=== PATIENT | female | born 2000 | race Caucasian/White ===

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

== ENCOUNTER 2018-01-21 10:34 | Emergency (ER) | payer BC ==
[2018-01-21] MEDS ORDERED: 0.9 % SODIUM CHLORIDE 1,000 ML BAG IV ONE (11:05)
[2018-01-21] MEDS ORDERED: KETOROLAC 30 MG/ML VIAL IVP ONE (11:06)
--- NOTE | 2018-01-21 11:13 | Emergency Department Record ---
History of Present Illness - General Chief Complaint: Headache Migraine Stated Complaint: HEADACHE,VISION LOSS Time Seen by Provider: 01/21/18 10:53 Source: Patient Mode of Arrival: Ambulatory Limitations: No limitations - History of Present Illness Initial Comments: pt has had a lin this am which has gotten gradually worse. it is global. she has not had a headache like this before. she had a brief moment of nearly blacking out when she stood up quickly. there is a family hx of migraines MD Complaint: Headache Onset/Timin -: Hour(s) Onset Description: Sudden Location: Diffuse Severity scale (1-10): 7 Quality: Aching Consistency: Constant Improves With: Nothing Worsens With: None Context: Tick bite Associated Symptoms: Nausea, Sensitivity to sound Treatments Prior to Arrival: None - Related Data Home Medications Medication Instructions Recorded Confirmed Last Taken Methylphenidate HCl [Concerta] 36 mg PO DAILY 01/21/18 01/21/18 Unknown Allergies Allergy/AdvReac Type Severity Reaction Status Date / Time No Known Drug Allergies Allergy Verified 01/21/18 10:46 Travel Screening - Travel/Exposure Within Last 30 Days Have you traveled within the last 30 days?: No Review of Systems Reviewed: No additional complaints except as noted below Constitutional: Reports: As per HPI. Denies: Chills, Fever, Malaise, Night sweats, Weakness, Weight change Eyes: Reports: As per HPI. Denies: Eye discharge, Eye pain, Photophobia, Vision change ENT: Reports: As per HPI. Denies: Congestion, Dental pain, Ear pain, Epistaxis , Hearing loss, Throat pain Respiratory: Reports: As per HPI. Denies: Cough, Dyspnea, Hemoptysis, Stridor, Wheezes Cardiovascular: Reports: As per HPI. Denies: Arrhythmia, Chest pain, Dyspnea on exertion, Edema, Murmurs, Orthopnea, Palpitations, Paroxysmal nocturnal dyspnea, Rheumatic Fever, Syncope Endocrine: Reports: As per HPI. Denies: Fatigue, Heat or cold intolerance, Polydipsia, Polyuria Gastrointestinal: Reports: As per HPI. Denies: Abdominal pain, Constipation, Diarrhea, Hematemesis, Hematochezia, Melena, Nausea, Vomiting Genitourinary: Reports: As per HPI. Denies: Abnormal menses, Discharge, Dyspareunia, Dysuria, Frequency, Hematuria, Incontinence, Retention, Urgency Musculoskeletal: Reports: As per HPI. Denies: Arthralgia, Back pain, Gout, Joint swelling, Myalgia, Neck pain Skin: Reports: As per HPI. Denies: Bruising, Change in color, Change in hair/ nails, Lesions, Pruritus, Rash Neurological: Reports: As per HPI, Headache. Denies: Abnormal gait, Confusion, Numbness, Paresthesias, Seizure, Tingling, Tremors, Vertigo, Weakness Psychiatric: Reports: As per HPI. Denies: Anxiety, Auditory hallucinations, Depression, Homicidal thoughts, Suicidal thoughts, Visual hallucinations Hematological/Lymphatic: Reports: As per HPI. Denies: Anemia, Blood Clots, Easy bleeding, Easy bruising, Swollen glands Past Medical History - SOCIAL HISTORY Smoking Status: Never smoker Alcohol Use: None Drug Use: None - RESPIRATORY Hx Respiratory Disorders: No - CARDIOVASCULAR Hx Cardio Disorders: No - NEURO Hx Neuro Disorders: No - GI Hx GI Disorders: No - Hx Genitourinary Disorders: Yes Hx UTI: Yes - ENDOCRINE Hx Endocrine Disorders: No - MUSCULOSKELETAL Hx Musculoskeletal Disorders: No - PSYCH Hx Psych Problems: No - HEMATOLOGY/ONCOLOGY Hx Hematology/Oncology Disorders: No Family Medical History Any Significant Family History?: Yes Hx HTN: Grandparents Physical Exam - General General Appearance: Alert, Oriented x3, Cooperative, Mild distress - Head Head exam: Normal inspection - Eye Eye exam: Normal appearance, PERRL, EOMI Pupils: Normal accommodation - ENT ENT exam: Normal exam, Mucous membranes moist, Normal external ear exam, Normal orophraynx Ear exam: Normal external inspection. negative: External canal tenderness Nasal Exam: Normal inspection. negative: Discharge, Sinus tenderness Mouth exam: Normal external inspection, Tongue normal Teeth exam: Normal inspection. negative: Dental caries Throat exam: Normal inspection. negative: Tonsillar erythema, Tonsillar exudate - Neck Neck exam: Normal inspection, Full ROM. negative: Tenderness - Respiratory Respiratory exam: Normal lung sounds bilaterally. negative: Respiratory distress - Cardiovascular Cardiovascular Exam: Regular rate, Normal rhythm, Normal heart sounds - GI/Abdominal GI/Abdominal exam: Soft, Normal bowel sounds. negative: Tenderness - Rectal Rectal exam: Deferred - exam: Deferred - Extremities Extremities exam: Normal inspection, Full ROM, Normal capillary refill. negative: Tenderness - Back Back exam: Reports: Normal inspection, Full ROM. Denies: Muscle spasm, Rash noted, Tenderness - Neurological Neurological exam: Alert, CN II-XII intact, Normal gait, Oriented X3 - Psychiatric Psychiatric exam: Normal affect, Normal mood - Skin Skin exam: Dry, Intact, Normal color, Warm Course Vital Signs 01/21/18 10:42 Temperature 98.2 F Pulse Rate 76 Respiratory 18 Rate Blood Pressure 131/73 Pulse Ox 96 - Reevaluation(s) Reevaluation #1: 01/21/18 12:24 pt feels better Reevaluation #2: 01/21/18 12:28 ct neg except r sphenoid sinusitis Medical Decision Making - Lab Data Result diagrams: 01/21/18 11:20 01/21/18 11:20 Disposition Disposition: Discharge Clinical Impression: Headache Qualifiers: Headache type: unspecified Headache chronicity pattern: acute headache Intractability: not intractable Qualified Code(s): R51 - Headache Disposition: Home, Self-Care Condition: (1) Good Instructions: Acute Headache (ED) Additional Instructions: follow up with family doctor. return sooner if worse. rest. Forms: Patient Portal Access, Return to Work/School Quality - Quality Measures Quality Measures: N/A - Blood Pressure Screening Does Patient Have Any of the Following: No Blood Pressure Classification: Pre-Hypertensive BP Reading Systolic Measurement: 131 Diastolic Measurement: 73 Screening for High Blood Pressure: < Pre-Hypertensive BP, F/U Documented > [ G8950] Pre-Hypertensive Follow-up Interventions: Follow-up with rescreen every year.
[2018-01-21 11:28] LABS: URINE APPEARANCE CLEAR; URINE BILIRUBIN NEGATIVE (NEGATIVE); URINE BLOOD NEGATIVE (NEGATIVE); URINE COLOR YELLOW; URINE GLUCOSE (UA) NEGATIVE (NEGATIVE); URINE KETONE NEGATIVE (NEGATIVE); URINE LEUKOCYTE ESTERASE TRACE (NEGATIVE); URINE NITRITE NEGATIVE (NEGATIVE); URINE PROTEIN NEGATIVE (NEGATIVE); URINE UROBILINOGEN 0.2 E.U./dL (0.20 - 1.00)
[2018-01-21 11:30] LABS: BASO % 0.2 % (0-6); EOS % 1.3 % (0-6); GRAN % 66.3 % (47-80); HEMATOCRIT 43.6 % (35.0-47.0); HEMOGLOBIN 14.2 gm/dl (11.6-16.0); LYMPH % 24.4 % (16-45); MEAN CELL VOLUME 90.1 fl (81-97); MEAN CORPUSCULAR HEMOGLOBIN 29.3 pg (27-33); MEAN CORPUSCULAR HGB CONC 32.6 g/dl (32-36); MEAN PLATELET VOLUME 10.2 fl (7.4-10.4); MONO % 7.8 % (0-9); PLATELET COUNT 232 K/uL (130-400); RED BLOOD COUNT 4.84 M/uL (3.80-5.40); RED CELL DISTRIBUTION WIDTH 13.6 % (11.5-14.5); WHITE BLOOD COUNT W/O DIFF 8.3 K/uL (4.2-12.2)
[2018-01-21 11:35] LABS: URINE RBC NONE SEEN (NONE SEEN); URINE WBC 0 - 2 (0-2/hpf)
[2018-01-21 11:38] LABS: BLOOD UREA NITROGEN 11 mg/dL (6-20); CREATININE 0.8 mg/dL (0.5-0.9)
[2018-01-21 11:40] LABS: GLUCOSE,RANDOM 91 mg/dL (74-109)
--- NOTE | 2018-01-22 05:45 | CT SCAN REPORT ---
EXAM: CT OF THE BRAIN WITHOUT CONTRAST HISTORY: HEADACHE. TECHNIQUE: Sequential axial images were obtained from the foramen magnum to the vertex without contrast administration. FINDINGS: The brain volume is normal. There is right sphenoid sinus disease. No large territorial infarct, hemorrhage, mass effect, or midline shift. No extraaxial fluid collection. The mastoid air cells appear normal. No depressed skull fracture. IMPRESSION: RIGHT SPHENOID SINUS DISEASE. JOB NUMBER: [id number] MTDD
== END 2018-01-21 12:45 | disposition home or self-care (01) ==
LOC: ER 10:34
DX: R51 Headache (principal); J01.30 Acute sphenoidal sinusitis, unspecified; R11.0 Nausea
CPT/HCPCS: 99284 ×2; 96374; 85025; 80048; 81001; 84703; 70450; J1885; J7030

== ENCOUNTER 2018-04-13 13:50 | Emergency (ER) | payer BC ==
[2018-04-13] MEDS ORDERED: 0.9 % SODIUM CHLORIDE 1,000 ML BAG IV ONE ×2 (14:11→15:25)
[2018-04-13 14:35] LABS: HEMATOCRIT 41.3 % (35.0-47.0); HEMOGLOBIN 13.8 gm/dl (11.6-16.0); MEAN CELL VOLUME 89.8 fl (81-97); MEAN CORPUSCULAR HGB CONC 33.4 g/dl (32-36); MEAN PLATELET VOLUME 10.1 fl (7.4-10.4); PLATELET COUNT 162 K/uL (130-400); RED CELL DISTRIBUTION WIDTH 13.9 % (11.5-14.5); WHITE BLOOD COUNT W/O DIFF 8.9 K/uL (4.2-12.2)
[2018-04-13 14:45] LABS: INFLUENZA A NEGATIVE (NEGATIVE); INFLUENZA B NEGATIVE (NEGATIVE)
[2018-04-13 14:46] LABS: BLOOD UREA NITROGEN 7 mg/dL (6-20); CREATININE 0.9 mg/dL (0.5-0.9)
[2018-04-13 14:49] LABS: GLUCOSE,RANDOM 129 mg/dL (74-109)
[2018-04-13 15:07] LABS: URINE APPEARANCE CLEAR; URINE BILIRUBIN SMALL (NEGATIVE); URINE BLOOD SMALL (NEGATIVE); URINE COLOR YELLOW; URINE GLUCOSE (UA) NEGATIVE (NEGATIVE); URINE KETONE NEGATIVE (NEGATIVE); URINE LEUKOCYTE ESTERASE TRACE (NEGATIVE); URINE NITRITE NEGATIVE (NEGATIVE); URINE PROTEIN TRACE (NEGATIVE); URINE UROBILINOGEN 0.2 E.U./dL (0.20 - 1.00)
[2018-04-13 15:20] LABS: HCG,QUALITATIVE URINE NEGATIVE (NEGATIVE); URINE RBC 0 - 2 (NONE SEEN); URINE WBC 0 - 2 (0-2/hpf)
[2018-04-13] MEDS ORDERED: ONDANSETRON HCL IV 4 MG/2 ML VIAL IVP ONE (15:25)
[2018-04-13] MEDS ORDERED: POTASSIUM CHLORIDE 10 MEQ TAB PO ONE (15:46)
[2018-04-13] MEDS ORDERED: PROMETHAZINE W/CODEINE 10ML UD PO ONE (15:50)
[2018-04-13] MEDS ORDERED: ALBUTEROL SULFATE (0.083%) 2.5 MG/3 ML NEB INH ONE (15:50)
--- NOTE | 2018-04-13 15:52 | Emergency Department Record ---
History of Present Illness - General Chief complaint: ENT Stated complaint: SORE THROAT,WAGONER Time Seen by Provider: 04/13/18 14:07 Source: Patient Mode of Arrival: Ambulatory Limitations: No limitations - History of Present Illness Initial comments: pt has had fever, congestion, cough, lightheadedness, sore throat. pt feels very light headed when she stands up complaint: Sore throat Onset/Timin -: Days(s) Severity: Mild Consistency: Constant Worsens with: Swallowing Associated Symptoms: Cough, Fever, Pain with swallowing, Rhinorrhea, Sore throat - Related Data Allergies Allergy/AdvReac Type Severity Reaction Status Date / Time No Known Drug Allergies Allergy Verified 04/13/18 14:08 Travel Screening - Travel/Exposure Within Last 30 Days Have you traveled within the last 30 days?: No - Travel/Exposure Within Last Year Have you traveled outside the [place] in the last year?: No - Additonal Travel Details Have you been exposed to anyone with a communicable illness?: No - Travel Symptoms Symptom Screening: None Review of Systems Reviewed: No additional complaints except as noted below Constitutional: Reports: As per HPI, Fever. Denies: Chills, Malaise, Night sweats, Weakness, Weight change Eyes: Reports: As per HPI. Denies: Eye discharge, Eye pain, Photophobia, Vision change ENT: Reports: As per HPI, Congestion, Throat pain. Denies: Dental pain, Ear pain, Epistaxis, Hearing loss Respiratory: Reports: As per HPI, Cough. Denies: Dyspnea, Hemoptysis, Stridor, Wheezes Cardiovascular: Reports: As per HPI. Denies: Arrhythmia, Chest pain, Dyspnea on exertion, Edema, Murmurs, Orthopnea, Palpitations, Paroxysmal nocturnal dyspnea, Rheumatic Fever, Syncope Endocrine: Reports: As per HPI. Denies: Fatigue, Heat or cold intolerance, Polydipsia, Polyuria Gastrointestinal: Reports: As per HPI. Denies: Abdominal pain, Constipation, Diarrhea, Hematemesis, Hematochezia, Melena, Nausea, Vomiting Genitourinary: Reports: As per HPI. Denies: Abnormal menses, Discharge, Dyspareunia, Dysuria, Frequency, Hematuria, Incontinence, Retention, Urgency Musculoskeletal: Reports: As per HPI. Denies: Arthralgia, Back pain, Gout, Joint swelling, Myalgia, Neck pain Skin: Reports: As per HPI. Denies: Bruising, Change in color, Change in hair/ nails, Lesions, Pruritus, Rash Neurological: Reports: As per HPI. Denies: Abnormal gait, Confusion, Headache, Numbness, Paresthesias, Seizure, Tingling, Tremors, Vertigo, Weakness Psychiatric: Reports: As per HPI. Denies: Anxiety, Auditory hallucinations, Depression, Homicidal thoughts, Suicidal thoughts, Visual hallucinations Hematological/Lymphatic: Reports: As per HPI. Denies: Anemia, Blood Clots, Easy bleeding, Easy bruising, Swollen glands Past Medical History - SOCIAL HISTORY Smoking Status: Never smoker Alcohol Use: Rare Drug Use: Rare Drug Use Detail:: Marijuana - RESPIRATORY Hx Respiratory Disorders: No - CARDIOVASCULAR Hx Cardio Disorders: No - NEURO Hx Neuro Disorders: No - GI Hx GI Disorders: No - Hx Genitourinary Disorders: Yes Hx UTI: Yes - ENDOCRINE Hx Endocrine Disorders: No - MUSCULOSKELETAL Hx Musculoskeletal Disorders: No - PSYCH Hx Psych Problems: No - HEMATOLOGY/ONCOLOGY Hx Hematology/Oncology Disorders: No Family Medical History Any Significant Family History?: No Hx HTN: Grandparents Physical Exam - General General Appearance: Alert, Oriented x3, Cooperative, No acute distress - Head Head exam: Normal inspection - Eye Eye exam: Normal appearance, PERRL, EOMI Pupils: Normal accommodation - ENT ENT exam: Normal exam, Mucous membranes moist, Normal external ear exam, Normal orophraynx Ear exam: Normal external inspection. negative: External canal tenderness Nasal Exam: Normal inspection. negative: Discharge, Sinus tenderness Mouth exam: Normal external inspection, Tongue normal Teeth exam: Normal inspection. negative: Dental caries Throat exam: Tonsillar erythema. negative: Tonsillar exudate - Neck Neck exam: Normal inspection, Full ROM. negative: Tenderness - Respiratory Respiratory exam: Normal lung sounds bilaterally. negative: Respiratory distress - Cardiovascular Cardiovascular Exam: Normal rhythm, Normal heart sounds, Tachycardia - GI/Abdominal GI/Abdominal exam: Soft, Normal bowel sounds. negative: Tenderness - Rectal Rectal exam: Deferred - exam: Deferred - Extremities Extremities exam: Normal inspection, Full ROM, Normal capillary refill. negative: Tenderness - Back Back exam: Reports: Normal inspection, Full ROM. Denies: Muscle spasm, Rash noted, Tenderness - Neurological Neurological exam: Alert, CN II-XII intact, Normal gait, Oriented X3 - Psychiatric Psychiatric exam: Normal affect, Normal mood - Skin Skin exam: Dry, Intact, Normal color, Warm Course Vital Signs 04/13/18 13:52 Temperature 97.9 F Pulse Rate 103 H Respiratory 20 Rate Blood Pressure 111/52 Pulse Ox 95 Medical Decision Making - Lab Data Result diagrams: 04/13/18 14:27 04/13/18 14:27 Lab Results 04/13/18 04/13/18 04/13/18 Range/Units 14:27 14:27 14:27 WBC 8.9 (4.2-12.2) K/uL RBC 4.60 (3.80-5.40) M/uL Hgb 13.8 (11.6-16.0) gm/dl Hct 41.3 (35.0-47.0) % MCV 89.8 (81-97) fl MCH 30.0 (27-33) pg MCHC 33.4 (32-36) g/dl RDW 13.9 (11.5-14.5) % Plt Count 162 (130-400) K/uL MPV 10.1 (7.4-10.4) fl Neutrophils % 76.0 (47-80) % Band Neutrophils % 5.0 (0-5) % Eosinophils % Not Reportable Basophils % Not Reportable Lymphocytes 11.0 L (16-45) % Monocytes 7.0 (0-9) % Basophils 0.0 (0-6) % Eosinophil Count 1.0 (0-6) % Sodium 137 (136-145) mmol/L Potassium 3.3 L (3.4-4.5) mmol/L Chloride 99 (98-107) mmol/L Carbon Dioxide 23.0 (22-29) mmol/L Anion Gap 15.0 (7-16) BUN 7 (6-20) mg/dL Creatinine 0.9 (0.5-0.9) mg/dL Estimated GFR TNP Random Glucose 129 H (74-109) mg/dL Calcium 8.8 (8.6-10.0) mg/dL Urine Color Urine Appearance Urine pH (5.0-8.0) Ur Specific [place] (1.002-1.030) Urine Protein (NEGATIVE) Urine Glucose (UA) (NEGATIVE) Urine Ketones (NEGATIVE) Urine Blood (NEGATIVE) Urine Nitrite (NEGATIVE) Urine Bilirubin (NEGATIVE) Urine Urobilinogen (0.20 - 1.00) E.U./dL Ur Leukocyte Esterase (NEGATIVE) Urine RBC (NONE SEEN) Urine WBC (0-2/hpf) Ur Epithelial Cells (FEW) Urine HCG, Qual (NEGATIVE) Monoscreen Negative (NEGATIVE) Influenza Type A Ag (NEGATIVE) Influenza Type B Ag (NEGATIVE) Group A Strep Screen (NEGATIVE) 04/13/18 04/13/18 04/13/18 Range/Units 14:27 14:27 15:10 WBC (4.2-12.2) K/uL RBC (3.80-5.40) M/uL Hgb (11.6-16.0) gm/dl Hct (35.0-47.0) % MCV (81-97) fl MCH (27-33) pg MCHC (32-36) g/dl RDW (11.5-14.5) % Plt Count (130-400) K/uL MPV (7.4-10.4) fl Neutrophils % (47-80) % Band Neutrophils % (0-5) % Eosinophils % Basophils % Lymphocytes (16-45) % Monocytes (0-9) % Basophils (0-6) % Eosinophil Count (0-6) % Sodium (136-145) mmol/L Potassium (3.4-4.5) mmol/L Chloride (98-107) mmol/L Carbon Dioxide (22-29) mmol/L Anion Gap (7-16) BUN (6-20) mg/dL Creatinine (0.5-0.9) mg/dL Estimated GFR Random Glucose (74-109) mg/dL Calcium (8.6-10.0) mg/dL Urine Color Yellow Urine Appearance Clear Urine pH 6.0 (5.0-8.0) Ur Specific [place] 1.020 (1.002-1.030) Urine Protein Trace H (NEGATIVE) Urine Glucose (UA) Negative (NEGATIVE) Urine Ketones Negative (NEGATIVE) Urine Blood Small H (NEGATIVE) Urine Nitrite Negative (NEGATIVE) Urine Bilirubin Small H (NEGATIVE) Urine Urobilinogen 0.2 (0.20 - 1.00) E.U./dL Ur Leukocyte Esterase Trace H (NEGATIVE) Urine RBC 0 - 2 (NONE SEEN) Urine WBC 0 - 2 (0-2/hpf) Ur Epithelial Cells 10 - 15 (FEW) Urine HCG, Qual Negative (NEGATIVE) Monoscreen (NEGATIVE) Influenza Type A Ag Negative (NEGATIVE) Influenza Type B Ag Negative (NEGATIVE) Group A Strep Screen Negative (NEGATIVE) Disposition Disposition: Discharge Clinical Impression: Acute viral syndrome, Dehydration, Orthostatic hypotension, Hypokalemia Disposition: Home, Self-Care Condition: (1) Good Instructions: Viral Syndrome (ED) Additional Instructions: follow up with family doctor. rest. push fluids.continue dayquil and nyquil Quality - Quality Measures Quality Measures: N/A - Blood Pressure Screening Does Patient Have Any of the Following: No Blood Pressure Classification: Normal BP Reading Systolic Measurement: 111 Diastolic Measurement: 52 Screening for High Blood Pressure: < Normal BP, F/U Not Required > [G8783]
--- NOTE | 2018-04-16 10:00 | RADIOLOGY REPORT ---
EXAM: CHEST, TWO VIEWS HISTORY: PATIENT HAS A COUGH. TECHNIQUE: Two views of the chest are provided along with the comparison study dated 08/22/13. FINDINGS: The cardiomediastinal silhouette is within normal limits for size and contour. The celestina appear unremarkable. There is a questionable nodular density measuring 1.4 cm within the right lateral lower lobe. This finding may represent overlying nipple shadow, otherwise there is no radiographic evidence of a focal consolidation, pleural effusion, or pneumothorax. IMPRESSION: 1. NONSPECIFIC NODULAR DENSITY IS NOTED WITHIN THE REGION OF THE RIGHT LOWER LOBE. THIS FINDING MAY REPRESENT OVERLYING NIPPLE SHADOW. IF THERE IS FURTHER CLINICAL CONCERN THEN A CT SCAN OF THE CHEST CAN BE OBTAINED FOR FURTHER EVALUATION. 2. OTHERWISE, NO RADIOGRAPHIC EVIDENCE OF A FOCAL CONSOLIDATION, PLEURAL EFFUSION, OR PNEUMOTHORAX. JOB NUMBER: [id number] [facility]
== END 2018-04-13 17:09 | disposition home or self-care (01) ==
LOC: ER 13:50
DX: I95.1 Orthostatic hypotension (principal); E87.6 Hypokalemia; E86.0 Dehydration; B34.9 Viral infection, unspecified; R42 Dizziness and giddiness; R51 Headache; R05 Cough; R11.0 Nausea
CPT/HCPCS: 99284 ×2; 96374; 96361; 80048; 81001; 87880; 81025; 86308; 87400; 85027; 71046; 94640; J2405; J7030; J7613

== ENCOUNTER 2019-04-10 14:55 | Emergency (ER) | payer BC ==
[2019-04-10] MEDS ORDERED: 0.9 % SODIUM CHLORIDE 1,000 ML BAG IV ONE (15:32)
[2019-04-10] MEDS ORDERED: ONDANSETRON HCL IV 4 MG/2 ML VIAL IV ONE (15:32)
--- NOTE | 2019-04-10 15:40 | Emergency Department Record ---
History of Present Illness - General Chief complaint: Vomiting Stated complaint: VOMITING WAGONER Time Seen by Provider: 04/10/19 15:07 Source: Patient Mode of Arrival: Ambulatory Limitations: No limitations - History of Present Illness Initial comments: The patient is here due to intermittent WAGONER's and vomiting since falling and hitting her head 5 days ago. She states she slipped on ice and hit the back of her head on the back of her car. Since the vomiting has been off and on with a global WAGONER. There has been no neck pain, AP, back pain, or fevers. The patient does have a hx of a chronic cough but that is unchanged. MD complaint: Nausea Onset/Timin -: Days(s) Severity: Moderate Severity scale (1-10): 7 Quality: Aching Consistency: Constant Improves with: None Worsens with: None Context: Other Associated Symptoms: Denies other symptoms - Related Data Previous Rx's Medication Instructions Recorded Doxycycline Monohydrate [Mondoxyne 100 mg PO BID 7 Days #28 capsule 04/10/19 Nl] Ondansetron [Zofran Odt] 4 mg SL .Q4-6H PRN #12 tab.rapdis 04/10/19 Allergies Allergy/AdvReac Type Severity Reaction Status Date / Time oseltamivir [From Tamiflu] AdvReac VOMITING Verified 04/10/19 15:14 Travel Screening - Travel/Exposure Within Last 30 Days Have you traveled within the last 30 days?: No - Travel/Exposure Within Last Year Have you traveled outside the [place] in the last year?: No - Additonal Travel Details Have you been exposed to anyone with a communicable illness?: No - Travel Symptoms Symptom Screening: None Review of Systems Constitutional: Denies: Chills, Fever Eyes: Denies: Eye discharge ENT: Denies: Congestion Respiratory: Reports: Cough. Denies: Dyspnea Past Medical History - SOCIAL HISTORY Smoking Status: Never smoker Alcohol Use: Occasional Drug Use: Occasional Drug Use Detail:: Marijuana - RESPIRATORY Hx Respiratory Disorders: Yes Hx Asthma: Yes Comment:: Vaping induced - CARDIOVASCULAR Hx Cardio Disorders: No - NEURO Hx Neuro Disorders: No - GI Hx GI Disorders: No - Hx Genitourinary Disorders: Yes Hx UTI: Yes - ENDOCRINE Hx Endocrine Disorders: No - MUSCULOSKELETAL Hx Musculoskeletal Disorders: No - PSYCH Hx Psych Problems: No - HEMATOLOGY/ONCOLOGY Hx Hematology/Oncology Disorders: No Family Medical History Any Significant Family History?: Yes Hx HTN: Grandparents Physical Exam - General General Appearance: Alert, Oriented x3, Cooperative, No acute distress - Head Head exam: Atraumatic, Normocephalic, Normal inspection - Eye Eye exam: Normal appearance, PERRL, EOMI - ENT Throat exam: Normal inspection. negative: Tonsillar erythema, Tonsillar exudate - Neck Neck exam: Normal inspection, Full ROM. negative: Lymphadenopathy, Meningismus, Tenderness (There is no Cspine tenderness.) - Respiratory Respiratory exam: Normal lung sounds bilaterally. negative: Respiratory distress - Cardiovascular Cardiovascular Exam: Regular rate, Normal rhythm, Normal heart sounds - GI/Abdominal GI/Abdominal exam: Soft, Normal bowel sounds. negative: Tenderness - Extremities Extremities exam: Normal inspection, Full ROM, Normal capillary refill. negative: Tenderness - Back Back exam: Denies: Vertebral tenderness - Neurological Neurological exam: Alert, Normal gait, Oriented X3. negative: Abnormal gait, Altered, Motor sensory deficit Course Vital Signs 04/10/19 15:16 Temperature 98 F Pulse Rate 96 H Respiratory 18 Rate Blood Pressure 122/69 Pulse Ox 97 - Reevaluation(s) Reevaluation #1: The patient is doing a lot better at this time. She denies any WAGONER, nausea, AP, or any more coughing. I did discuss the lab and xray results with the patient and do believe she has 2 different things going on. I do believe the WAGONER and nausea are most likely related to a mild concussion from the fall last weekend. I also believe the sinus infection and probably a lung infection is causing the coughing. We will discharge the patient with Doxycycline and Zofran and she is to see her PCP next week for recheck. 04/10/19 17:28 Medical Decision Making - Data Complexity MDM Data: Labs Ordered and/or Reviewed, X-Ray Ordered and/or Reviewed - Lab Data Result diagrams: 04/10/19 15:10 04/10/19 15:10 - Radiology Data Radiology results: Report reviewed (CXR: Neg Head CT: Neg for acute intracranial abnormality. Positive spenoid and L maxillary sinusitis.) Disposition Disposition: Discharge Clinical Impression: Bronchitis, Post-concussion syndrome Disposition: Home, Self-Care Condition: (2) Stable Instructions: Acute Nausea and Vomiting (ED), Post Concussion Syndrome (ED) Additional Instructions: Please take the Doxycycline as directed and also use Zofran for nausea. Please see your family doctor next week if not better and return to the ER for any worsening issues. Prescriptions: Doxycycline Monohydrate [Mondoxyne Nl] 100 mg PO BID 7 Days #28 capsule Ondansetron [Zofran Odt] 4 mg SL .Q4-6H PRN #12 tab.rapdis PRN Reason: Nausea Forms: Patient Portal Access Time of Disposition: 17:33 Quality - Quality Measures Quality Measures: N/A - Blood Pressure Screening View Details: Yes Does Patient Have Any of the Following: No Blood Pressure Classification: Pre-Hypertensive BP Reading Systolic Measurement: 122 Diastolic Measurement: 69 Screening for High Blood Pressure: < Pre-Hypertensive BP, F/U Documented > [G8950] Pre-Hypertensive Follow-up Interventions: Referral to alternative/primary care kam montalvo.
[2019-04-10 15:47] LABS: ABSOLUTE NEUTROPHIL COUNT 2.39; BASO % 0.5 % (0-6); EOS % 0.7 % (0-6); GRAN % 59.3 % (47-80); HEMATOCRIT 43.2 % (35.0-47.0); LYMPH % 24.6 % (16-45); MEAN CELL VOLUME 88.5 fl (81-97); MEAN CORPUSCULAR HEMOGLOBIN 28.7 pg (27-33); MEAN CORPUSCULAR HGB CONC 32.4 g/dl (32-36); MONO % 14.9 % (0-9); PLATELET COUNT 217 K/uL (130-400); RED BLOOD COUNT 4.88 M/uL (3.80-5.40); RED CELL DISTRIBUTION WIDTH 14.5 % (11.5-14.5)
[2019-04-10 16:01] LABS: BLOOD UREA NITROGEN 7 mg/dL (6-20); CREATININE 0.9 mg/dL (0.5-0.9); EST GLOMERULAR FILTRATION RATE > 60 mL/min
[2019-04-10 16:02] LABS: TOTAL PROTEIN 7.5 g/dL (6.6-8.7)
[2019-04-10 16:04] LABS: GLUCOSE,RANDOM 93 mg/dL (74-109)
[2019-04-10 16:06] LABS: ALT/SGPT 11 U/L (<33)
[2019-04-10] MEDS ORDERED: ACETAMINOPHEN 1,000 MG/100 ML BTL IVPB ONE (16:06)
[2019-04-10 16:07] LABS: ALB/GLOB RATIO 1.3 (1.1-1.8); ALBUMIN 4.2 g/dL (4.0-5.0); ALKALINE PHOSPHATASE 111 U/L (35-104); AST/SGOT 16 U/L (10.0-35.0)
--- NOTE | 2019-04-10 16:49 | CT SCAN REPORT ---
EXAMINATION: HEAD WO CONTRAST EXAM DATE: 04/10/2019 4:31 PM TECHNIQUE: Noncontrast axial images were obtained to the brain. INDICATION: Head injury COMPARISON: 01/20/2018 ENCOUNTER: Not applicable HAND DOMINANCE: Unknown FINDINGS: The brain parenchyma is unremarkable for age. No loss of jaramillo-white matter differentiation or sulcal effacement to indicate acute infarction. No evidence of intracranial mass. The ventricles, sulci, and subarachnoid spaces are unremarkable for age. The basal cisterns are paten t and there is no midline shift or herniation. No intra-axial or extra-axial fluid collection. No evidence of intracranial hemorrhage. Opacification of the right sphenoid sinus is again demonstrated. Mild maxillary sinus mucosal thicken ing. Small air-fluid level in the left sphenoid sinus and left frontal sinus. The paranasal sinuses, mastoid air cells, and orbits are otherwise unremarkable. The calvarium is intact. IMPRESSION: 1. No CT evidence of intracranial hemorrhage or acute intracranial abnormality. 2. Air-fluid levels in the left sphenoid sinus and left maxillary sinus are inflammatory or traumati c, favoring inflammatory etiology Dictated by: ANA LUISA MUNIZ MD on 04/10/2019 4:46 PM. .
--- NOTE | 2019-04-10 17:02 | RADIOLOGY REPORT ---
EXAMINATION: Two View Chest Radiographs EXAM DATE: 04/10/2019 4:37 PM TECHNIQUE: Frontal and lateral views INDICATION: cough COMPARISON: 03/06/2019 ENCOUNTER: Not applicable FINDINGS: No pulmonary infiltrate, pneumothorax, or pleural effusion. The cardiomediastinal silhouette is withi n normal limits. IMPRESSION: No acute pulmonary disease. Dictated by: Mary Perez MD on 04/10/2019 4:58 PM. .
[2019-04-10] MEDS ORDERED: KETOROLAC 30 MG/ML VIAL IVP ONE (17:07)
== END 2019-04-10 17:46 | disposition home or self-care (01) ==
LOC: ER 14:55
DX: G44.319 Acute post-traumatic headache, not intractable (principal); F07.81 Postconcussional syndrome; J20.9 Acute bronchitis, unspecified; J01.30 Acute sphenoidal sinusitis, unspecified; J01.00 Acute maxillary sinusitis, unspecified
CPT/HCPCS: 99284 ×2; 96365; 96375; 85025; 80053; 84703; 71046; 70450; J1885; J2405; J7030

== ENCOUNTER 2019-04-24 17:06 | Emergency (ER) | payer BC ==
[2019-04-24] MEDS ORDERED: 0.9 % SODIUM CHLORIDE 1,000 ML BAG IV ONE ×2 (17:17→18:14)
--- NOTE | 2019-04-24 17:25 | Emergency Department Record ---
History of Present Illness - General Chief complaint: Vomiting Stated complaint: VOMITING/DIZZY Time Seen by Provider: 04/24/19 17:09 Source: Patient Mode of Arrival: Ambulatory Limitations: No limitations - History of Present Illness Initial comments: 18 yo female presents with about htree weeks of nausea and vomiting on a frequent daily basis. She was admitted in late February with a significant pleuritic cough. She was vaping and smoking at the time. The pulmonary symptoms resolved. She fell in early February hitting her head. She had headac hes and dizziness after that. She was seen in the ED on 04/10. HCT was negative. She states since then the nausea and vomiting have persisted. She states anytime she eats or drinks she has nausea and vomiting. She sat up in her bed today and passed out. No injury. No chest pain or shortness of breath. No history or cardiac disease. No fever. No diarrhea with the vomiting. She does frequently use edible marijuana. MD complaint: Nausea, Vomiting Onset/Timin -: Month(s) Description of Vomiting: Watery Description of Diarrhea: Other (None) Improves with: None Worsens with: None Context: Other - Related Data Previous Rx's Medication Instructions Recorded Ondansetron [Zofran Odt] 4 mg PO Q8H #15 tab.rapdis 04/24/19 Allergies Allergy/AdvReac Type Severity Reaction Status Date / Time oseltamivir [From Tamiflu] AdvReac VOMITING Verified 04/10/19 15:14 Travel/Exposure Screening - Travel/Exposure Within Last 30 Days Have you traveled within the last 30 days?: No - Travel/Exposure Within Last Year Have you traveled outside the [place] in the last year?: No - Additonal Travel/Exposure Details Have you been exposed to anyone with a communicable illness?: No - Travel Symptoms Symptom Screening: Weakness, Vomiting Review of Systems Constitutional: Reports: Weakness. Denies: Chills, Fever, Malaise Eyes: Denies: Eye discharge, Eye pain, Photophobia, Vision change ENT: Denies: Congestion, Throat pain Respiratory: Denies: Cough, Dyspnea, Hemoptysis, Wheezes Cardiovascular: Reports: As per HPI, Syncope. Denies: Chest pain, Palpitations Endocrine: Reports: Fatigue Gastrointestinal: Reports: Nausea, Vomiting. Denies: Abdominal pain, Constipation, Diarrhea, Hematemesis, Hematochezia, Melena Genitourinary: Denies: Dysuria, Urgency Musculoskeletal: Denies: Arthralgia, Back pain, Myalgia Skin: Denies: Bruising, Change in color, Rash Neurological: Reports: Headache, Vertigo. Denies: Confusion, Numbness, Tingling, Weakness Psychiatric: Denies: Anxiety Hematological/Lymphatic: Denies: Easy bleeding, Easy bruising Past Medical History - SOCIAL HISTORY Smoking Status: Never smoker Alcohol Use: None Drug Use: None - RESPIRATORY Hx Respiratory Disorders: No Hx Asthma: Yes Comment:: Vaping induced - CARDIOVASCULAR Hx Cardio Disorders: No - NEURO Hx Neuro Disorders: No - GI Hx GI Disorders: No - Hx Genitourinary Disorders: Yes Hx UTI: Yes - ENDOCRINE Hx Endocrine Disorders: No - MUSCULOSKELETAL Hx Musculoskeletal Disorders: No - PSYCH Hx Psych Problems: No - HEMATOLOGY/ONCOLOGY Hx Hematology/Oncology Disorders: No Family Medical History Any Significant Family History?: No Hx HTN: Grandparents Physical Exam - General General Appearance: Alert, Oriented x3, Cooperative, No acute distress Limitations: No limitations - Head Head exam: Atraumatic, Normal inspection - Eye Eye exam: Normal appearance, PERRL. negative: Conjunctival injection, Scleral icterus - ENT ENT exam: Normal exam, Mucous membranes moist Ear exam: Normal external inspection Nasal Exam: Normal inspection Mouth exam: Normal external inspection - Neck Neck exam: Normal inspection, Full ROM. negative: Tenderness - Respiratory Respiratory exam: Normal lung sounds bilaterally. negative: Respiratory distress, Rhonchi, Stridor, Wheezes - Cardiovascular Cardiovascular Exam: Regular rate, Normal rhythm, Normal heart sounds Peripheral Pulses: 2+: Radial (R), Radial (L) - GI/Abdominal GI/Abdominal exam: Soft. negative: Tenderness - Rectal Rectal exam: Deferred - exam: Deferred - Extremities Extremities exam: Normal inspection. negative: Calf tenderness, Pedal edema, Tenderness - Back Back exam: Denies: CVA tenderness (R), CVA tenderness (L) - Neurological Neurological exam: Alert, CN II-XII intact, Oriented X3. negative: Altered - Psychiatric Psychiatric exam: Normal affect, Normal mood. negative: Agitated, Anxious - Skin Skin exam: Dry, Intact, Normal color, Warm Course Vital Signs 04/24/19 17:10 Temperature 98.4 F Pulse Rate 80 Respiratory 16 Rate Blood Pressure 108/48 Pulse Ox 100 - Reevaluation(s) Reevaluation #1: 04/24/19 17:25 EMR reviewed from the February, March, and April visits 04/24/19 17:25 EKG #1: 17:14 Rate: 71 Rhythm: sinus [place]: normal Intervals: normal ST segments: normal 04/24/19 17:46 The CBC was reviewed. No acute abnormality. The CMP and TSH are normal 04/24/19 19:01 We discussed the results of the tests and questions were answered. The patient is doing well and is comfortable with DC. We discussed at length reasons to immediately return to the ED as well as close follow up. The patient will call the PCP for close follow up of this ED visit to review this visit and the tests performed DC vitals were reviewed. 04/24/19 19:09 The UA is negative, HCG negative, UDS only positive for cannabis. Medical Decision Making - Lab Data Result diagrams: 04/24/19 17:15 04/24/19 17:15 Disposition Disposition: Discharge Clinical Impression: Dehydration Syncope Qualifiers: Syncope type: unspecified Qualified Code(s): R55 - Syncope and collapse Nausea and vomiting Qualifiers: Vomiting type: unspecified Vomiting Intractability: unspecified Qualified Code(s): R11.2 - Nausea with vomiting, unspecified Disposition: Home, Self-Care Condition: (1) Good Instructions: Syncope (ED), Acute Nausea and Vomiting (ED) Additional Instructions: Review this ER visit and the tests performed with your family doctor Call your doctor for the next available follow up appointment Return to the ER for a recheck immediately if worse, any new concerns or questions Take the prescriptions provided as directed Prescriptions: Ondansetron [Zofran Odt] 4 mg PO Q8H #15 tab.rapdis Forms: Patient Portal Access Time of Disposition: 19:01 Quality - Quality Measures Quality Measures: N/A - Blood Pressure Screening Does Patient Have Any of the Following: No Blood Pressure Classification: Normal BP Reading Systolic Measurement: 108 Diastolic Measurement: 48 Screening for High Blood Pressure: < Normal BP, F/U Not Required > [G8783]
[2019-04-24 17:36] LABS: ABSOLUTE NEUTROPHIL COUNT 3.67; BASO % 0.5 % (0-6); EOS % 1.7 % (0-6); GRAN % 60.5 % (47-80); HEMATOCRIT 43.9 % (35.0-47.0); HEMOGLOBIN 13.8 gm/dl (11.6-16.0); LYMPH % 28.2 % (16-45); MEAN CELL VOLUME 91.5 fl (81-97); MEAN CORPUSCULAR HEMOGLOBIN 28.8 pg (27-33); MEAN CORPUSCULAR HGB CONC 31.4 g/dl (32-36); MEAN PLATELET VOLUME 9.9 fl (7.4-10.4); MONO % 9.1 % (0-9); PLATELET COUNT 259 K/uL (130-400); RED CELL DISTRIBUTION WIDTH 15.1 % (11.5-14.5); WHITE BLOOD COUNT W/O DIFF 6.1 K/uL (4.2-12.2)
[2019-04-24 17:45] LABS: BLOOD UREA NITROGEN 11 mg/dL (6-20); EST GLOMERULAR FILTRATION RATE > 60 mL/min
[2019-04-24 17:46] LABS: TOTAL PROTEIN 7.6 g/dL (6.6-8.7)
[2019-04-24 17:48] LABS: GLUCOSE,RANDOM 84 mg/dL (74-109)
[2019-04-24 17:51] LABS: ALB/GLOB RATIO 1.5 (1.1-1.8); ALBUMIN 4.5 g/dL (4.0-5.0); ALKALINE PHOSPHATASE 106 U/L (35-104); ALT/SGPT 16 U/L (<33); AST/SGOT 16 U/L (10.0-35.0)
[2019-04-24 18:01] LABS: THYROID STIMULATING HORMONE 0.66 uIU/mL (0.270-4.20)
[2019-04-24 19:01] LABS: URINE APPEARANCE CLEAR; URINE BILIRUBIN NEGATIVE (NEGATIVE); URINE BLOOD NEGATIVE (NEGATIVE); URINE COLOR YELLOW; URINE GLUCOSE (UA) NEGATIVE (NEGATIVE); URINE KETONE NEGATIVE (NEGATIVE); URINE LEUKOCYTE ESTERASE NEGATIVE (NEGATIVE); URINE NITRITE NEGATIVE (NEGATIVE); URINE PROTEIN NEGATIVE (NEGATIVE); URINE UROBILINOGEN 0.2 E.U./dL (0.20 - 1.00)
[2019-04-24 19:04] LABS: HCG,QUALITATIVE URINE NEGATIVE (NEGATIVE)
[2019-04-24 19:06] LABS: AMPHETAMINE SCREEN URINE NOT DETECTED; BARBITURATE SCREEN URINE NOT DETECTED; BENZODIAZEPINE SCREEN URINE NOT DETECTED; COCAINE SCREEN URINE NOT DETECTED; METHADONE SCREEN URINE NOT DETECTED; METHAMPHETAMINE SCREEN NOT DETECTED; OPIATE SCREEN URINE NOT DETECTED; OXYCODONE SCREEN URINE NOT DETECTED; PHENCYCLIDINE SCREEN URINE NOT DETECTED; PROPOXYPHENE SCREEN URINE NOT DETECTED; THC SCREEN URINE DETECTED; TRICYCLIC ANTIDEPRESSANT SCRN NOT DETECTED
== END 2019-04-24 19:30 | disposition home or self-care (01) ==
LOC: ER 17:06
DX: E86.0 Dehydration (principal); R55 Syncope and collapse; R11.2 Nausea with vomiting, unspecified
CPT/HCPCS: 80053; 80305; 81003; 81025; 83735; 84443; 85025; 93005; 93010; 96360; 96361; 99284; J7030